=== PATIENT | male | born 1945 | race Hispanic/Latino ===

== ENCOUNTER 2019-01-04 16:42 | Observation (INO) | payer MEDICARE ==
[2019-01-04] MEDS ORDERED: NACL 0.9% 500 ML 500 ML ONE (17:02)
[2019-01-04] MEDS ORDERED: CARDIZEM ONE (17:02)
[2019-01-04] MEDS ORDERED: CARDIZEM IV ONE ×2 (17:10)
[2019-01-04] MEDS ORDERED: CARDIZEM PO ONE (17:10)
[2019-01-04] MEDS ORDERED: NACL 0.9% 500 ML 500 ML IV ONE ×2 (17:10→18:27)
--- NOTE | 2019-01-04 17:12 | Emergency Department Report ---
ED General Adult HPI - General Chief complaint: Chest Pain Stated complaint: CHEST PAIN/SOB Time Seen by Provider: 01/04/19 16:53 Source: patient, RN notes reviewed Mode of arrival: Ambulatory Limitations: No Limitations - History of Present Illness Initial comments: Orthotic Finish Grinding Technician: Dr. Marquis Primary care doctor: [facility] Past medical history: SVT, hypertension, question BPH, on daily aspirin This is a pleasant 73-year-old gentleman known to this provider previously. Patient presents to the ER today with complaint of painless shortness of breath. He endorses palpitations. He denies new or different medications, with the exception of one new medicine, which he cannot recall the name of. The patient denies physical pain at this time. He denies DVT, pulmonary embolism risk factors. He denies ingestion of stimulants. He denies urinary symptoms. He denies hematemesis, bright red blood per rectum. He presents to the ER today in A. fib with RVR which is reportedly new for him. Initial rate 159-164 bpm. Patient not endorsing chest pain. He is given diltiazem, 10 mg, 15 mg, 50 mg, 10 mg, and 30 mg orally. This successfully slow the patient down to a rate in the 80s/90s. He is currently still in A. fib which is reportedly new for him. The patient does not have a past history of diabetes, congestive heart failure, stroke or TIA. He is currently on chronic aspirin therapy. The patient prefers to not receive systemic anticoagulation at this time, as he is concerned about side effects. -: Sudden Improves with: medication Worsens with: none - Related Data Home Medications Medication Instructions Recorded Confirmed Last Taken Aspirin [Aspirin BABY CHEW TAB] 81 mg PO QDAY 01/04/19 01/04/19 1 Day Ago ~01/03/19 Gemfibrozil [Lopid] 600 mg PO BID 01/04/19 01/04/19 1 Day Ago ~01/03/19 Leflunomide [Arava] 20 mg PO QDAY 01/04/19 01/04/19 1 Day Ago ~01/03/19 Lisinopril [Zestril] 20 mg PO QDAY 01/04/19 01/04/19 2 Days Ago ~01/02/19 Metoprolol [Lopressor TAB] 25 mg PO BID 01/04/19 01/04/19 1 Day Ago ~01/03/19 Pravastatin [Pravachol] 40 mg PO QHS 01/04/19 01/04/19 1 Day Ago ~01/03/19 Tamsulosin [Flomax] 0.4 mg PO QDAY 01/04/19 01/04/19 1 Day Ago ~01/03/19 amLODIPine [Norvasc] 5 mg PO DAILY 01/04/19 01/04/19 1 Day Ago ~01/03/19 Allergies Allergy/AdvReac Type Severity Reaction Status Date / Time No Known Allergies Allergy Unverified 01/04/19 16:50 ED Review of Systems ROS: Stated complaint: CHEST PAIN/SOB Other details as noted in HPI Constitutional: denies: fever Eyes: denies: eye discharge ENT: denies: congestion Respiratory: shortness of breath Cardiovascular: palpitations Gastrointestinal: denies: nausea, vomiting, hematemesis, melena, hematochezia Genitourinary: denies: dysuria Musculoskeletal: arthralgia (chronic) Skin: denies: lesions Neurological: weakness. denies: headache Hematological/Lymphatic: denies: easy bleeding ED Past Medical Hx - Past Medical History Previous Medical History?: Yes Hx Hypertension: Yes Additional medical history: SVT - Surgical History Past Surgical History?: No - Medications Home Medications: Home Medications Medication Instructions Recorded Confirmed Last Taken Type Aspirin [Aspirin BABY CHEW TAB] 81 mg PO QDAY 01/04/19 01/04/19 1 Day Ago History ~01/03/19 Gemfibrozil [Lopid] 600 mg PO BID 01/04/19 01/04/19 1 Day Ago History ~01/03/19 Leflunomide [Arava] 20 mg PO QDAY 01/04/19 01/04/19 1 Day Ago History ~01/03/19 Lisinopril [Zestril] 20 mg PO QDAY 01/04/19 01/04/19 2 Days Ago History ~01/02/19 Metoprolol [Lopressor TAB] 25 mg PO BID 01/04/19 01/04/19 1 Day Ago History ~01/03/19 Pravastatin [Pravachol] 40 mg PO QHS 01/04/19 01/04/19 1 Day Ago History ~01/03/19 Tamsulosin [Flomax] 0.4 mg PO QDAY 01/04/19 01/04/19 1 Day Ago History ~01/03/19 amLODIPine [Norvasc] 5 mg PO DAILY 01/04/19 01/04/19 1 Day Ago History ~01/03/19 ED Physical Exam - General Limitations: No Limitations General appearance: alert, in no apparent distress - Head Head exam: Present: atraumatic, normocephalic - Eye Eye exam: Present: normal appearance, EOMI. Absent: nystagmus - ENT ENT exam: Present: normal exam, normal orophraynx, mucous membranes moist, no rmal external ear exam - Neck Neck exam: Present: normal inspection, full ROM. Absent: tenderness, meningismus - Respiratory Respiratory exam: Present: normal lung sounds bilaterally. Absent: respiratory distress - Cardiovascular Cardiovascular Exam: Present: tachycardia, irregular rhythm, normal heart sounds. Absent: systolic murmur, diastolic murmur, rubs, gallop - GI/Abdominal GI/Abdominal exam: Present: soft. Absent: distended, tenderness, guarding, rebound, rigid, pulsatile mass - Rectal Rectal exam: Present: deferred - Extremities Exam Extremities exam: Present: normal inspection, full ROM, other (2+ pulses noted in the bilateral upper, lower extremities. Compartments soft. No long bony tenderness. The pelvis is stable.). Absent: joint swelling, calf tenderness - Back Exam Back exam: Present: normal inspection, full ROM. Absent: tenderness, CVA tenderness (R), CVA tenderness (L), paraspinal tenderness, vertebral tenderness - Neurological Exam Neurological exam: Present: alert, oriented X3, other (Extraocular movements intact. Tongue midline. No facial droop. Facial sensation intact to light touch in the V1, V2, V3 distribution bilaterally. 5 and 5 strength in 4 extremities.. Sensation is intact to light touch in 4 extremities.). Absent: motor sensory deficit - Psychiatric Psychiatric exam: Present: normal affect, normal mood - Skin Skin exam: Present: warm, dry, intact, normal color. Absent: rash ED Course Vital Signs 01/04/19 01/04/19 01/04/19 17:04 17:06 17:10 Temperature Pulse Rate 126 H 112 H 89 Respiratory 23 19 14 Rate Blood Pressure Blood Pressure [Left] O2 Sat by Pulse 94 Oximetry 01/04/19 01/04/19 01/04/19 17:12 17:16 17:20 Temperature 98.8 F Pulse Rate 97 H 82 Respiratory 16 11 L Rate Blood Pressure Blood Pressure [Left] O2 Sat by Pulse Oximetry 01/04/19 01/04/19 01/04/19 17:30 18:00 18:10 Temperature Pulse Rate 80 87 87 Respiratory 14 15 19 Rate Blood Pressure 104/60 87/46 87/46 Blood Pressure [Left] O2 Sat by Pulse 95 94 95 Oximetry 01/04/19 01/04/19 01/04/19 18:16 18:28 19:13 Temperature Pulse Rate 72 150 H Respiratory 20 19 Rate Blood Pressure 80/56 Blood Pressure 88/58 113/68 [Left] O2 Sat by Pulse 95 95 Oximetry 01/04/19 01/04/19 01/04/19 19:26 19:30 20:20 Temperature Pulse Rate 149 H 71 61 Respiratory 17 16 15 Rate Blood Pressure 113/68 120/60 118/63 Blood Pressure [Left] O2 Sat by Pulse 94 95 96 Oximetry - Reevaluation(s) Reevaluation #1: 01/04/19 18:51 Differential diagnosis, including but not limited to: Electrolyte derangement, t hyroid derangement, pneumonia, urinary tract infection, A. fib with RVR Assessment and plan: Old gentleman, no pulmonary embolism or DVT risk factors, low risk by well's criteria, with no additional symptoms with the exception of tachycardia, palpitations and shortness of breath. His tachycardia is improved with intravenous diltiazem, administered by myself. Patient still in A. fib, but not having symptoms at this time. Contacted covering cardiology, Dr. Irma Viveros, who agrees with admission. Indicates her group can follow-up in consultation. Extensive discussion had with the patient regarding systemic anticoagulation versus aspirin therapy. Given his past medical history, the patient has a chads 2 vasc score of 1, and the patient was informed about his annual stroke risk. Through shared decision making, patient and I agreed to continue aspirin therapy, and for the time adi pham, forego systemic anticoagulation. Hospital physician is paged to arrange admission. Reevaluation #2: 01/04/19 18:53 Clinically do not suspect pneumonia or urinary tract infection at this time. Reevaluation #3: 01/04/19 19:50 Dr Varghese to admit TSH within normal limits. X-ray of the chest unremarkable. - EJ/Peripheral Line Arm R Time Out Performed: Yes Indications: other Skin Cleansed in Sterile Fashion: Yes Size: 20 Dressing Placed: Tegaderm Patient Tolerated Procedure: well ED Medical Decision Making - Lab Data Result diagrams: 01/04/19 18:00 01/04/19 18:00 Vital Signs 01/04/19 01/04/19 01/04/19 17:04 17:06 17:10 Temperature Pulse Rate 126 H 112 H 89 Respiratory 23 19 14 Rate Blood Pressure Blood Pressure [Left] O2 Sat by Pulse 94 Oximetry 01/04/19 01/04/19 01/04/19 17:12 17:16 17:20 Temperature 98.8 F Pulse Rate 97 H 82 Respiratory 16 11 L Rate Blood Pressure Blood Pressure [Left] O2 Sat by Pulse Oximetry 01/04/19 01/04/19 01/04/19 17:30 18:00 18:28 Temperature Pulse Rate 80 87 Respiratory 14 15 Rate Blood Pressure 104/60 87/46 Blood Pressure 88/58 [Left] O2 Sat by Pulse 95 94 Oximetry Lab Results 01/04/19 01/04/19 01/04/19 Range/Units 18:00 18:00 18:00 WBC 7.7 (4.5-11.0) K/mm3 RBC 4.30 (3.65-5.03) M/mm3 Hgb 13.3 (11.8-15.2) gm/dl Hct 38.5 (35.5-45.6) % MCV 90 (84-94) fl MCH 31 (28-32) pg MCHC 35 H (32-34) % RDW 14.4 (13.2-15.2) % Plt Count 192 (140-440) K/mm3 PT 13.9 (12.2-14.9) Sec. INR 1.10 (0.87-1.13) Sodium 141 (137-145) mmol/L Potassium 3.9 (3.6-5.0) mmol/L Chloride 106.5 (98-107) mmol/L Carbon Dioxide 23 (22-30) mmol/L Anion Gap 15 mmol/L BUN 17 (9-20) mg/dL Creatinine 0.9 (0.8-1.5) mg/dL Estimated GFR > 60 ml/min BUN/Creatinine Ratio 19 % Glucose 108 H (75-100) mg/dL Calcium 9.4 (8.4-10.2) mg/dL Magnesium (1.7-2.3) mg/dL Total Creatine Kinase (55-170) units/L 01/04/19 Range/Units 18:00 WBC (4.5-11.0) K/mm3 RBC (3.65-5.03) M/mm3 Hgb (11.8-15.2) gm/dl Hct (35.5-45.6) % MCV (84-94) fl MCH (28-32) pg MCHC (32-34) % RDW (13.2-15.2) % Plt Count (140-440) K/mm3 PT (12.2-14.9) Sec. INR (0.87-1.13) Sodium (137-145) mmol/L Potassium (3.6-5.0) mmol/L Chloride (98-107) mmol/L Carbon Dioxide (22-30) mmol/L Anion Gap mmol/L BUN (9-20) mg/dL Creatinine (0.8-1.5) mg/dL Estimated GFR ml/min BUN/Creatinine Ratio % Glucose (75-100) mg/dL Calcium (8.4-10.2) mg/dL Magnesium 1.90 (1.7-2.3) mg/dL Total Creatine Kinase 67 (55-170) units/L - EKG Data -: EKG Interpreted by Nd Rate: tachycardia - EKG Data When compared to previous EKG there are: previous EKG unavailable 01/04/19 18:50 EKG #1 shows A. fib, RVR, was an artifact, T-wave inversions, left ventricular hypertrophy, no endorsement of chest pain, not consistent with ST elevation myocardial infarction. Rate is 159 bpm. [place] interval within normal limits, QTC 463 ms. EKG #2 shows A. fib, variable rate, 90 bpm, normal axis, QTC prolonged, persistent T-wave inversions, no endorsement of chest pain, this EKG is abnormal, the EKG is not consistent with ST elevation myocardial infarction. There is no prior EKG available for comparison. - Radiology Data Radiology results: pending Critical Care Time: Yes Critical care time in (mins) excluding proc time.: 35 Critical care attestation.: If time is entered above; I have spent that time in minutes in the direct care of this critically ill patient, excluding procedure time. ED Disposition Clinical Impression: Atrial fibrillation with RVR Disposition: OP ADMIT IP TO THIS HOSP Is pt being admited?: Yes Does the pt Need Aspirin: Yes Condition: Stable
[2019-01-04 18:08] LABS: Hematocrit 38.5 % (35.5-45.6); Hemoglobin 13.3 gm/dl (11.8-15.2); Mean Corpuscular HGB Conc 35 % (32-34); Mean Corpuscular Volume 90 fl (84-94); Platelet Count 192 K/mm3 (140-440); Red Cell Distribution Width 14.4 % (13.2-15.2)
[2019-01-04 18:19] LABS: INR 1.1 (0.87-1.13)
[2019-01-04 18:26] LABS: BUN/Creatinine Ratio 19; Blood Urea Nitrogen 17 mg/dL (9-20); Calcium 9.4 mg/dL (8.4-10.2); Hemolysis Index 5
[2019-01-04] MEDS ORDERED: BABY ASPIRIN PO ONE (18:53)
[2019-01-04 19:11] LABS: Bilirubin,Urine NEG (Negative); Blood,Urine SM (Negative); Color,Urine Yellow (Yellow); Protein,Urine <15 mg/dL mg/dL (Negative); Urobilinogen,Urine < 2.0 mg/dL (<2.0)
--- NOTE | 2019-01-04 19:26 | XRay Report ---
CHEST 1 VIEW INDICATION: sob tachycardia. COMPARISON: None. FINDINGS: Support devices: None. Heart: Within normal limits. Lungs/Pleura: No acute air space or interstitial disease. Additional findings: None. IMPRESSION: No acute abnormality. Signer Name: James Michel MD Signed: 01/04/2019 7:22 PM Workstation Name: [id number]
[2019-01-04] MEDS ORDERED: SODIUM CHLORIDE FLUSH SYRINGE 10 ML IV PRN (20:15)
[2019-01-04] MEDS ORDERED: ZOFRAN IV PRN (20:15)
[2019-01-04] MEDS ORDERED: MILK OF MAGNESIA PO PRN (20:15)
[2019-01-04] MEDS ORDERED: TYLENOL PO PRN (20:15)
--- NOTE | 2019-01-04 20:19 | History and Physical Report ---
History of Present Illness Date of examination: 01/04/19 Date of admission: 01/04/2019 Chief complaint: Palpitation History of present illness: Pt is a 73 male with PMHx of hypertension who presents to the ER today with complaints of palpitation. Patient's family in room states that the patient was admitted in a nearby hospital 3 weeks ago with palpitation and diagnosed with Afib, he was started on aspirin PO daily and metoprolol 25mg BID. Pt presents to the ER today with the same problem, his heart rate was between 159-164 bpm at presentation, he was started on PO cardizem with improvement of his heart rate. Patient denies any chest pain, denies headache, denies dizziness denies recent illness, denies any cough, denies shortness of breath. Cardiology was consulted and patient is admitted for further evaluation of his presenting symptoms. Past History Past Medical History: hypertension Past Surgical History: No surgical history Social history: no significant social history, lives with family Medications and Allergies Allergies Allergy/AdvReac Type Severity Reaction Status Date / Time No Known Allergies Allergy Unverified 01/04/19 16:50 Home Medications Medication Instructions Recorded Confirmed Last Taken Type Aspirin [Aspirin BABY CHEW TAB] 81 mg PO QDAY 01/04/19 01/04/19 1 Day Ago History ~01/03/19 Gemfibrozil [Lopid] 600 mg PO BID 01/04/19 01/04/19 1 Day Ago History ~01/03/19 Leflunomide [Arava] 20 mg PO QDAY 01/04/19 01/04/19 1 Day Ago History ~01/03/19 Lisinopril [Zestril] 20 mg PO QDAY 01/04/19 01/04/19 2 Days Ago History ~01/02/19 Metoprolol [Lopressor TAB] 25 mg PO BID 01/04/19 01/04/19 1 Day Ago History ~01/03/19 Pravastatin [Pravachol] 40 mg PO QHS 01/04/19 01/04/19 1 Day Ago History ~01/03/19 Tamsulosin [Flomax] 0.4 mg PO QDAY 01/04/19 01/04/19 1 Day Ago History ~01/03/19 amLODIPine [Norvasc] 5 mg PO DAILY 07/08/19 07/08/19 1 Day Ago History ~01/03/19 Active Meds: Active Medications Acetaminophen (Tylenol) 650 mg PO Q4H PRN PRN Reason: Pain MILD(1-3)/Fever >100.5/[place] Magnesium Hydroxide (Milk Of Magnesia) 30 ml PO Q4H PRN PRN Reason: Constipation Ondansetron HCl (Zofran) 4 mg IV Q8H PRN PRN Reason: Nausea And Vomiting Sodium Chloride (Sodium Chloride Flush Syringe 10 Ml) 10 ml IV BID LINDA Sodium Chloride (Sodium Chloride Flush Syringe 10 Ml) 10 ml IV PRN PRN PRN Reason: LINE FLUSH Review of Systems Cardiovascular: palpitations, rapid/irregular heart beat Exam - Constitutional Vitals: Temp Pulse Resp BP Pulse Ox 98.8 F 150 H 19 113/68 95 01/04/19 17:12 01/04/19 19:13 01/04/19 19:13 01/04/19 19:13 01/04/19 19:13 General appearance: Present: no acute distress - EENT Eyes: Present: EOM intact ENT: hearing intact - Neck Neck: Present: normal ROM - Respiratory Respiratory effort: normal Respiratory: bilateral: CTA - Cardiovascular Rhythm: irregularly irregular Heart Sounds: Present: S1 & S2 - Extremities Extremities: no ischemia, No edema Peripheral Pulses: within normal limits - Abdominal General gastrointestinal: Present: non-tender, non-distended Male genitourinary: Present: deferred - Rectal Rectal Exam: deferred - Integumentary Integumentary: Present: warm, dry - Musculoskeletal Musculoskeletal: strength equal bilaterally - Psychiatric Psychiatric: cooperative - Neurologic Neurologic: moves all extremities Results - Labs CBC & Chem 7: 01/04/19 18:00 01/04/19 18:00 Labs: Laboratory Last Values WBC 7.7 K/mm3 (4.5-11.0) 01/04/19 18:00 RBC 4.30 M/mm3 (3.65-5.03) 01/04/19 18:00 Hgb 13.3 gm/dl (11.8-15.2) 01/04/19 18:00 Hct 38.5 % (35.5-45.6) 01/04/19 18:00 MCV 90 fl (84-94) 01/04/19 18:00 MCH 31 pg (28-32) 01/04/19 18:00 MCHC 35 % (32-34) H 01/04/19 18:00 RDW 14.4 % (13.2-15.2) 01/04/19 18:00 Plt Count 192 K/mm3 (140-440) 01/04/19 18:00 PT 13.9 Sec. (12.2-14.9) 01/04/19 18:00 INR 1.10 (0.87-1.13) 01/04/19 18:00 Sodium 141 mmol/L (137-145) 01/04/19 18:00 Potassium 3.9 mmol/L (3.6-5.0) 01/04/19 18:00 Chloride 106.5 mmol/L (98-107) 01/04/19 18:00 Carbon Dioxide 23 mmol/L (22-30) 01/04/19 18:00 15 mmol/L 01/04/19 18:00 BUN 17 mg/dL (9-20) 01/04/19 18:00 0.9 mg/dL (0.8-1.5) 01/04/19 18:00 Estimated GFR > 60 ml/min 01/04/19 18:00 19 % 01/04/19 18:00 Glucose 108 mg/dL (75-100) H 01/04/19 18:00 Calcium 9.4 mg/dL (8.4-10.2) 01/04/19 18:00 Magnesium 1.90 mg/dL (1.7-2.3) 01/04/19 18:00 67 units/L (55-170) 01/04/19 18:00 TSH 1.910 mlU/mL (0.270-4.200) 01/04/19 18:00 Yellow (Yellow) 01/04/19 18:39 Clear (Clear) 01/04/19 18:39 5.0 (5.0-7.0) 01/04/19 18:39 Ur Specific [place] 1.013 (1.003-1.030) 01/04/19 18:39 <15 mg/dl mg/dL (Negative) 01/04/19 18:39 Neg mg/dL (Negative) 01/04/19 18:39 Neg mg/dL (Negative) 01/04/19 18:39 Sm (Negative) 01/04/19 18:39 Neg (Negative) 01/04/19 18:39 Neg (Negative) 01/04/19 18:39 < 2.0 mg/dL (<2.0) 01/04/19 18:39 Ur Leukocyte Esterase Neg (Negative) 01/04/19 18:39 1.0 /HPF (0.0-6.0) 01/04/19 18:39 3.0 /HPF (0.0-6.0) 01/04/19 18:39 Assessment and Plan Assessment and plan: 1. A. fib with RVR 2. Hypertension Plan: Patient is admitted to med telemetry for A. fib with RVR,, Cardizem PRN for elevated heart rate Hold metoprolol for heart rate less than 65 Continue home meds Awaiting cardiology for evaluation today Continue aspirin Plan of care discussed with patient's family, voiced understanding Advance Directives: Yes VTE prophylaxis?: Chemical Plan of care discussed with patient/family: Yes
[2019-01-04] MEDS: SODIUM CHLORIDE FLUSH SYRINGE 10 ML IV SCH (22:53)
[2019-01-05] MEDS ORDERED: LEFLUNOMIDE 20 MG PO SCH (10:00)
--- NOTE | 2019-01-05 12:36 | Consultation ---
History of Present Illness Consult date: 01/05/19 Requesting physician: PIPO NEWBERRY Consult reason: atrial fibrillation History of present illness: The pt is a 73 YO male with a past medical history of nonobstructive CAD, transient atrial flutter, HTN, HLP, LI (wears CPAP about 3 hours every night). He is followed in our office by Dr. Marshall. He presented with c/o palpitations and SOB yesterday evening. Following arrival to ED, pt as noted to be in AFib with RVR and was given cardizem and HR improved. Overnight, pt converted to NSR and he remains in SR on evaluation. Pt denies any current complaints. Pt reports one additional episode or arrhythmia - he presented with c/o palpitations to [facility] ED on 12/12/2018 and was found to be in AFlutter initially and then converted to NSR and was discharged home on PO lopressor 25mg BID. LHC 10/2009 showed mid LAD focal 50%, normal LV function. Echo done 10/2009 showed EF 55%, impaired relaxation, mild MR. Past History Past Medical History: CAD, hypertension, hyperlipidemia Past Surgical History: No surgical history Social history: no significant social history, lives with family Medications and Allergies Allergies Allergy/AdvReac Type Severity Reaction Status Date / Time No Known Allergies Allergy Unverified 01/04/19 16:50 Home Medications Medication Instructions Recorded Confirmed Last Taken Type Aspirin [Aspirin BABY CHEW TAB] 81 mg PO QDAY 01/04/19 01/04/19 1 Day Ago History ~01/03/19 Gemfibrozil [Lopid] 600 mg PO BID 01/04/19 01/04/19 1 Day Ago History ~01/03/19 Leflunomide [Arava] 20 mg PO QDAY 01/04/19 01/04/19 1 Day Ago History ~01/03/19 Lisinopril [Zestril] 20 mg PO QDAY 01/04/19 01/04/19 2 Days Ago History ~01/02/19 Metoprolol [Lopressor TAB] 25 mg PO BID 01/04/19 01/04/19 1 Day Ago History ~01/03/19 Pravastatin [Pravachol] 40 mg PO QHS 01/04/19 01/04/19 1 Day Ago History ~01/03/19 Tamsulosin [Flomax] 0.4 mg PO QDAY 01/04/19 01/04/19 1 Day Ago History ~01/03/19 amLODIPine [Norvasc] 5 mg PO DAILY 01/04/19 01/04/19 1 Day Ago History ~01/03/19 Active Meds: Active Medications Acetaminophen (Tylenol) 650 mg PO Q4H PRN PRN Reason: Pain MILD(1-3)/Fever >100.5/[place] Amlodipine Besylate (Norvasc) 5 mg PO DAILY [facility] Aspirin (Baby Aspirin) 81 mg PO QDAY [facility] Gemfibrozil (Lopid) 600 mg PO BID [facility] Lisinopril (Zestril) 20 mg PO QDAY [facility] Magnesium Hydroxide (Milk Of Magnesia) 30 ml PO Q4H PRN PRN Reason: Constipation Metoprolol Tartrate (Lopressor) 25 mg PO BID [facility] Miscellaneous Medication (Leflunomide [Arava]) 20 mg PO QDAY [facility] Ondansetron HCl (Zofran) 4 mg IV Q8H PRN PRN Reason: Nausea And Vomiting Pravastatin Sodium (Pravachol) 40 mg PO QHS [facility] Sodium Chloride (Sodium Chloride Flush Syringe 10 Ml) 10 ml IV BID [facility] Last Admin: 01/04/19 22:53 Dose: Not Given Documented by: Sodium Chloride (Sodium Chloride Flush Syringe 10 Ml) 10 ml IV PRN PRN PRN Reason: LINE FLUSH Tamsulosin HCl (Flomax) 0.4 mg PO QDAY [facility] Review of Systems Constitutional: no weight loss, no weight gain, no fever, no chills, no sweats Ears, nose, mouth and throat: no ear pain, no nose pain, no sinus pressure, no sinus pain Cardiovascular: palpitations, rapid/irregular heart beat, shortness of breath, high blood pressure, no chest pain, no orthopnea, no edema, no syncope, no lightheadedness, no leg edema Respiratory: shortness of breath, no cough, no congestion, no wheezing, no pain on inspiration Gastrointestinal: no abdominal pain, no nausea, no vomiting, no diarrhea, no constipation, no change in bowel habits Genitourinary Male: no dysuria, no hematuria, no flank pain, no discharge, no urinary frequency, no urinary hesitancy Musculoskeletal: no neck stiffness, no neck pain, no shooting arm pain, no arm numbness/tingling, no low back pain, no shooting leg pain Integumentary: no rash, no pruritis, no redness, no sores, no wounds Neurological: no head injury, no paralysis, no weakness, no parathesias, no numbness, no tingling, no seizures, no syncope Psychiatric: no anxiety Endocrine: no cold intolerance, no heat intolerance Hematologic/Lymphatic: no easy bruising, no easy bleeding Allergic/Immunologic: no urticaria, no wheezing Physical Examination Vital Signs Pulse Resp 126 H 23 01/04/19 17:04 01/04/19 17:04 General appearance: no acute distress HEENT: Positive: PERRL, Normocephaly, Mucus Membranes Moist Neck: Positive: neck supple, trachea midline Cardiac: Positive: Reg Rate and Rhythm, S1/S2 Lungs: Positive: Decreased Breath Sounds Neuro: Positive: Grossly Intact Abdomen: Positive: Soft. Negative: Tender Skin: Negative: Rash Musculoskeletal: No Pain Extremities: Absent: edema Results 01/04/19 18:00 01/04/19 18:00 Coagulation 01/04/19 Range/Units 18:00 PT 13.9 (12.2-14.9) Sec. INR 1.10 (0.87-1.13) CBC 01/04/19 Range/Units 18:00 WBC 7.7 (4.5-11.0) K/mm3 RBC 4.30 (3.65-5.03) M/mm3 Hgb 13.3 (11.8-15.2) gm/dl Hct 38.5 (35.5-45.6) % Plt Count 192 (140-440) K/mm3 Comprehensive Metabolic Panel 01/04/19 Range/Units 18:00 Sodium 141 (137-145) mmol/L Potassium 3.9 (3.6-5.0) mmol/L Chloride 106.5 (98-107) mmol/L Carbon Dioxide 23 (22-30) mmol/L BUN 17 (9-20) mg/dL Creatinine 0.9 (0.8-1.5) mg/dL Glucose 108 H (75-100) mg/dL Calcium 9.4 (8.4-10.2) mg/dL - Imaging and Cardiology Echo: report reviewed (10/2009 showed EF 55%, impaired relaxation, mild MR. ) Cardiac cath: report reviewed (10/2009 showed mid LAD focal 50%, normal LV function. ) EKG: report reviewed, image reviewed EKG interpretations - Telemetry EKG Rhythm: Sinus Rhythm - EKG Supraventricular dysrhythmia: atrial fibrillation Assessment and Plan Pt with elevated CHADS and thus systemic AC in regards to AFib/AFlutter is indicated. Indications, potential risks and benefits of systemic AC reviewed with pt and his at bedside and they are agreeable. Initiate Eliquis. Cont all other present cardiac management. Obtain echo. Cont observation on t elemetry. Likely d/c home in AM pending no acute events occur overnight. The patient has been seen in conjunction with Dr. Platt who agrees with the assessment and plan of care. - Patient Problems (1) Atrial fibrillation with RVR Current Visit: Yes Status: Acute (2) History of atrial flutter Current Visit: Yes Status: Chronic (3) Nonobstructive atherosclerosis of coronary artery Current Visit: Yes Status: Chronic (4) HTN (hypertension) Current Visit: Yes Status: Chronic (5) Hyperlipidemia Current Visit: Yes Status: Chronic (6) Sleep apnea Current Visit: Yes Status: Chronic
[2019-01-05] MEDS: FLOMAX PO SCH (13:34)
[2019-01-05] MEDS: ZESTRIL PO SCH (13:34)
[2019-01-05] MEDS: LOPRESSOR PO SCH ×2 (13:34→21:54)
[2019-01-05] MEDS: BABY ASPIRIN PO SCH (13:34)
[2019-01-05] MEDS: SODIUM CHLORIDE FLUSH SYRINGE 10 ML IV SCH ×2 (13:35→21:56)
[2019-01-05] MEDS: NORVASC PO SCH (13:35)
[2019-01-05] MEDS: LOPID PO SCH ×2 (13:41→21:55)
--- NOTE | 2019-01-05 19:36 | Progress Note ---
Assessment and Plan - Patient Problems (1) Atrial fibrillation with RVR Current Visit: Yes Status: Acute Plan to address problem: At present patient is rate is controlled and rhythm is controlled on by mouth Cardizem. Not sure if we will obtain any further testing for cardiology. Most likely we'll try Cardizem continue this echocardiogram to rule out structural heart disease. And anticoagulation with elaquis. (2) HTN (hypertension) Current Visit: Yes Status: Chronic Plan to address problem: Chronic control with current exam is particular time. History Interval history: Patient feels good no new concerns. Initially brought in with atrial fibrillation given Cardizem resorted back to normal sinus rhythm. She sees Dr. Lopez for cardiology. Has had a previous episode of atrial fibrillation. Presently patient is chest pain-free no shortness of breath cardiac status is regular. Hospitalist Physical - Constitutional Vitals: Temp Pulse Resp BP Pulse Ox 97.5 F L 62 18 121/52 95 01/05/19 16:56 01/05/19 04:00 01/05/19 16:56 01/05/19 16:56 01/05/19 12:59 General appearance: Present: no acute distress - EENT Eyes: Present: PERRL, EOM intact ENT: hearing intact, clear oral mucosa, dentition normal - Neck Neck: Present: supple, normal ROM - Respiratory Respiratory: bilateral: rhonchi - Extremities Extremities: no ischemia, pulses intact, pulses symmetrical, No edema, normal temperature, normal color, Full ROM Peripheral Pulses: within normal limits - Abdominal General gastrointestinal: soft, non-tender, non-distended, distended, normal bowel sounds, other (obese) - Integumentary Integumentary: Present: clear, warm, dry - Psychiatric Psychiatric: appropriate mood/affect, intact judgment & insight, memory intact - Neurologic Neurologic: moves all extremities Results - Labs CBC & Chem 7: 01/04/19 18:00 01/04/19 18:00 Labs: Laboratory Last Values WBC 7.7 K/mm3 (4.5-11.0) 01/04/19 18:00 RBC 4.30 M/mm3 (3.65-5.03) 01/04/19 18:00 Hgb 13.3 gm/dl (11.8-15.2) 01/04/19 18:00 Hct 38.5 % (35.5-45.6) 01/04/19 18:00 MCV 90 fl (84-94) 01/04/19 18:00 MCH 31 pg (28-32) 01/04/19 18:00 MCHC 35 % (32-34) H 01/04/19 18:00 RDW 14.4 % (13.2-15.2) 01/04/19 18:00 Plt Count 192 K/mm3 (140-440) 01/04/19 18:00 PT 13.9 Sec. (12.2-14.9) 01/04/19 18:00 INR 1.10 (0.87-1.13) 01/04/19 18:00 Sodium 141 mmol/L (137-145) 01/04/19 18:00 Potassium 3.9 mmol/L (3.6-5.0) 01/04/19 18:00 Chloride 106.5 mmol/L (98-107) 01/04/19 18:00 Carbon Dioxide 23 mmol/L (22-30) 01/04/19 18:00 15 mmol/L 01/04/19 18:00 BUN 17 mg/dL (9-20) 01/04/19 18:00 0.9 mg/dL (0.8-1.5) 01/04/19 18:00 Estimated GFR > 60 ml/min 01/04/19 18:00 19 % 01/04/19 18:00 Glucose 108 mg/dL (75-100) H 01/04/19 18:00 Calcium 9.4 mg/dL (8.4-10.2) 01/04/19 18:00 Magnesium 1.90 mg/dL (1.7-2.3) 01/04/19 18:00 67 units/L (55-170) 01/04/19 18:00 TSH 1.910 mlU/mL (0.270-4.200) 01/04/19 18:00 Yellow (Yellow) 01/04/19 18:39 Clear (Clear) 01/04/19 18:39 5.0 (5.0-7.0) 01/04/19 18:39 Ur Specific [place] 1.013 (1.003-1.030) 01/04/19 18:39 <15 mg/dl mg/dL (Negative) 01/04/19 18:39 Neg mg/dL (Negative) 01/04/19 18:39 Neg mg/dL (Negative) 01/04/19 18:39 Sm (Negative) 01/04/19 18:39 Neg (Negative) 01/04/19 18:39 Neg (Negative) 01/04/19 18:39 < 2.0 mg/dL (<2.0) 01/04/19 18:39 Ur Leukocyte Esterase Neg (Negative) 01/04/19 18:39 1.0 /HPF (0.0-6.0) 01/04/19 18:39 3.0 /HPF (0.0-6.0) 01/04/19 18:39 Active Medications - Current Medications Current Medications: Generic Name Dose Route Start Last Admin Trade Name Freq PRN Reason Stop Dose Admin Acetaminophen 650 mg 01/04/19 20:15 Tylenol PO Q4H PRN Pain MILD(1-3)/Fever >100.5/[place] Amlodipine Besylate 5 mg 01/05/19 10:00 01/05/19 13:35 Norvasc PO 5 mg DAILY LINDA Administration Apixaban 5 mg 01/05/19 22:00 Eliquis PO Q12HR [facility] Protocol Aspirin 81 mg 01/05/19 10:00 01/05/19 13:34 Baby Aspirin PO 81 mg QDAY ILNDA Administration Gemfibrozil 600 mg 01/05/19 10:00 01/05/19 13:41 Lopid PO 600 mg BID LINDA Administration Lisinopril 20 mg 01/05/19 10:00 01/05/19 13:34 Zestril PO 20 mg QDAY LINDA Administration Magnesium Hydroxide 30 ml 01/04/19 20:15 Milk Of Magnesia PO Q4H PRN Constipation Metoprolol Tartrate 25 mg 01/05/19 10:00 01/05/19 13:34 Lopressor PO 25 mg BID LINDA Administration Miscellaneous Medication 20 mg 01/05/19 10:00 Leflunomide [Arava] PO QDAY LINDA Ondansetron HCl 4 mg 01/04/19 20:15 Zofran IV Q8H PRN Nausea And Vomiting Pravastatin Sodium 40 mg 01/05/19 22:00 Pravachol PO QHS [facility] Sodium Chloride 10 ml 01/04/19 22:00 01/05/19 13:35 Sodium Chloride Flush Syringe 10 Ml IV 10 ml BID LINDA Administration Sodium Chloride 10 ml 01/04/19 20:15 Sodium Chloride Flush Syringe 10 Ml IV PRN PRN LINE FLUSH Tamsulosin HCl 0.4 mg 01/05/19 10:00 01/05/19 13:34 Flomax PO 0.4 mg QDAY LINDA Administration
[2019-01-05] MEDS: ELIQUIS PO SCH (21:55)
[2019-01-05] MEDS ORDERED: PRAVACHOL PO SCH (22:00)
[2019-01-06 08:51] VITALS: BP 137/74
--- NOTE | 2019-01-06 10:52 | Progress Note ---
Assessment and Plan Echo reviewed - normal EF, no significant abnormalities. Currently stable cardiac status. Pt may discharge home from cardiology standpoint on current cardiac regimen, including Eliquis and lopressor. Recommend pt follow up in our office with Dr. Marshall within 1-2 weeks of hospital discharge ([phone]). Pt and pt's verbalize understanding. The patient has been seen in conjunction with Dr. Platt who agrees with the assessment and plan of care. - Patient Problems (1) Atrial fibrillation with RVR Current Visit: Yes Status: Acute (2) History of atrial flutter Current Visit: Yes Status: Chronic (3) Nonobstructive atherosclerosis of coronary artery Current Visit: Yes Status: Chronic (4) HTN (hypertension) Current Visit: Yes Status: Chronic (5) Hyperlipidemia Current Visit: Yes Status: Chronic (6) Sleep apnea Current Visit: Yes Status: Chronic Subjective Date of service: 01/06/19 Principal diagnosis: AFib Interval history: pt resting comfortably up in chair, no current complaints. tele reviewed - pt re eugenie in NSR with no acute events overnight. at bedside. Objective Last Vital Signs Temp 97.3 F L 01/06/19 08:09 Pulse 62 01/06/19 03:59 Resp 18 01/06/19 08:09 BP 137/74 01/06/19 08:09 Pulse Ox 94 01/06/19 03:59 - Physical Examination General: No Apparent Distress HEENT: Positive: PERRL, Normocephaly, Mucus Membranes Moist Neck: Positive: neck supple, trachea midline Cardiac: Positive: Reg Rate and Rhythm, S1/S2 Lungs: Positive: clear to auscultation Neuro: Positive: Grossly Intact Abdomen: Positive: Soft. Negative: Tender Skin: Negative: Rash Musculoskeletal: No Pain Extremities: Absent: edema - Imaging and Cardiology EKG: report reviewed, image reviewed Echo: report reviewed (10/2009 showed EF 55%, impaired relaxation, mild MR. ) Cardiac cath: report reviewed (10/2009 showed mid LAD focal 50%, normal LV function. ) - Telemetry EKG Rhythm: Sinus Rhythm
--- NOTE | 2019-01-06 11:00 | Discharge Summary ---
Providers - Providers Date of Admission: 01/04/19 19:51 Date of discharge: 01/06/19 Attending physician: ALDA CASTILLO 01/04/19 17:09 Consult to Physician [CONS] Urgent Comment: DR CONI CHAPMAN W/DR MOLINA @[id number] Consulting Provider: ANDREA MOLINA Physician Instructions: Reason For Exam: afib w rvr [facility] Condition: Good Pertinent studies: Echocardiogram normal. Structural heart disease. Disposition: -01 TO HOME OR SELFCARE - Discharge Diagnoses (1) Atrial fibrillation with RVR Status: Acute Comment: She presented with atrial fibrillation rapid ventricular rate. Initially started on beta felice was unsuccessful. Follow- up with Cardizem drip and then by mouth Cardizem. Patient remained in regular rhythm for 2448 hrs. No evidence of A. fib during exam. Follow-up echo was normal. Patient be discharged on Cardizem and eloquis follow with cardiology 1- [address] Marquis. (2) HTN (hypertension) Status: Chronic Core Measure Documentation - Palliative Care Palliative Care/ Comfort Measures: Not Applicable - Core Measures Any of the following diagnoses?: none Exam - Constitutional Vitals: Temp Pulse Resp BP Pulse Ox 97.3 F L 62 18 137/74 94 01/06/19 08:09 01/06/19 03:59 01/06/19 08:09 01/06/19 08:09 01/06/19 03:59 General appearance: Present: no acute distress, well-nourished - EENT Eyes: Present: PERRL ENT: hearing intact, clear oral mucosa - Neck Neck: Present: supple, normal ROM - Respiratory Respiratory effort: normal Respiratory: bilateral: CTA - Cardiovascular Heart Sounds: Present: S1 & S2. Absent: rub, click - Extremities Extremities: pulses symmetrical, No edema Peripheral Pulses: within normal limits - Abdominal General gastrointestinal: Present: soft, non-tender, non-distended, normal bowel sounds Male genitourinary: Present: normal - Integumentary Integumentary: Present: clear, warm, dry - Musculoskeletal Musculoskeletal: gait normal, strength equal bilaterally - Psychiatric Psychiatric: appropriate mood/affect, intact judgment & insight - Neurologic Neurologic: CNII-XII intact, moves all extremities Plan Activity: no restrictions, no driving until cleared by PCP Weight Bearing Status: Full Weight Bearing Diet: low cholesterol, low salt Follow up with: SCOTT LEE MD [Primary Care Provider] - 3-5 Days Prescriptions: Apixaban [Eliquis] 5 mg PO Q12HR #60 tablet Metoprolol [Lopressor TAB] 25 mg PO BID #30 tablet
[2019-01-06] MEDS: FLOMAX PO SCH (11:03)
[2019-01-06] MEDS: LOPID PO SCH (11:03)
[2019-01-06] MEDS: ELIQUIS PO SCH (11:03)
[2019-01-06] MEDS: NORVASC PO SCH (11:03)
[2019-01-06] MEDS: ZESTRIL PO SCH (11:04)
[2019-01-06] MEDS: BABY ASPIRIN PO SCH (11:04)
[2019-01-06] MEDS: LOPRESSOR PO SCH (11:04)
[2019-01-06] MEDS: SODIUM CHLORIDE FLUSH SYRINGE 10 ML IV SCH (11:05)
== END 2019-01-06 13:15 | disposition home or self-care (01) ==
LOC: ED 16:42 → 4A 19:51
PROVIDERS: ADMIT Internal Medicine; ATTEND Internal Medicine
DX: I48.2 Chronic atrial fibrillation (principal); I10 Essential (primary) hypertension; E78.5 Hyperlipidemia, unspecified; I48.92 Unspecified atrial flutter; I25.119 Atherosclerotic heart disease of native coronary artery with unspecified angina pectoris; G47.30 Sleep apnea, unspecified; Z79.899 Other long term (current) drug therapy
CPT/HCPCS: 36415; 71045; 80048; 81001; 82550; 83735; 84443; 85027; 85610; 93005; 93010; 93306; 96374; 99291; A9270; G0378; J7040

== ENCOUNTER 2019-03-26 10:05 | Observation (INO) | payer MEDICARE ==
[2019-03-26] MEDS ORDERED: ASPIRIN 325 MG TAB PO ONE (10:24)
[2019-03-26] MEDS ORDERED: dilTIAZem 25 MG/5 ML INJ IV ONE ×2 (10:50→12:47)
[2019-03-26] MEDS ORDERED: dilTIAZem 25 MG/5 ML INJ ONE (10:52)
--- NOTE | 2019-03-26 11:05 | Emergency Department Report ---
ED Chest Pain HPI - General Chief Complaint: Chest Pain Stated Complaint: HEART FIB/PAIN Time Seen by Provider: 03/26/19 10:41 Source: patient Mode of arrival: Ambulatory Limitations: No Limitations - History of Present Illness Initial Comments: 73-year-old male presents to the emergency department from home with complaint of "a strange feeling in my chest" with some intermittent shortness of breath and the patient says "I knew I was back in A. fib." The patient was just recently diagnosed with atrial fibrillation in December of this year and was admitted for further evaluation. He had converted back to a sinus rhythm by the time of discharge, 2 days later. He was discharged home on Eliquis and Lopressor and sent for outpatient f/u in 1-2 weeks with his cardiac cath technologist, Dr Sidhu. He denies any tobacco or illicit drug use. He denies any fever, back pain, lower extremity swelling. He denies any other past medical history. No recent travel or sick contacts at home. - Related Data Home Medications Medication Instructions Recorded Confirmed Last Taken Gemfibrozil [Lopid] 600 mg PO BID 01/04/19 03/26/19 03/26/19 Leflunomide [Arava] 20 mg PO QDAY 01/04/19 03/26/19 03/26/19 Lisinopril [Zestril TAB] 20 mg PO QDAY 01/04/19 03/26/19 03/25/19 Pravastatin [Pravachol] 40 mg PO QHS 01/04/19 03/26/19 03/25/19 Tamsulosin [Flomax] 0.4 mg PO QDAY 01/04/19 03/26/19 03/26/19 amLODIPine [Norvasc] 5 mg PO DAILY 01/04/19 03/26/19 03/26/19 Finasteride [Proscar] 5 mg PO QDAY 03/26/19 03/26/19 Unknown Previous Rx's Medication Instructions Recorded Last Taken Type Apixaban [Eliquis] 5 mg PO Q12HR #60 tablet 01/06/19 03/26/19 Rx Metoprolol [Lopressor TAB] 25 mg PO BID #30 tablet 01/06/19 03/26/19 Rx Allergies Allergy/AdvReac Type Severity Reaction Status Date / Time No Known Allergies Allergy Unverified 01/04/19 16:50 Heart Score - HEART Score History: Slightly suspicious EKG: Non-specific Age: > 65 Risk factors: 1-2 risk factors Troponin: < normal limit HEART Score: 4 - Critical Actions Critical Actions: 4-6 pts:12-16.6% risk of adverse cardiac event. Should be admitted ED Review of Systems ROS: Stated complaint: HEART FIB/PAIN Other details as noted in HPI Comment: All other systems reviewed and negative Constitutional: denies: chills, fever Respiratory: shortness of breath. denies: cough Cardiovascular: chest pain, palpitations. denies: edema Gastrointestinal: denies: abdominal pain, vomiting Genitourinary: denies: dysuria, discharge Musculoskeletal: denies: back pain, arthralgia Neurological: denies: headache, weakness ED Past Medical Hx - Past Medical History Previous Medical History?: Yes Hx Hypertension: Yes Additional medical history: SVT - Surgical History Past Surgical History?: No - Social History Smoking Status: Never Smoker Substance Use Type: None - Medications Home Medications: Home Medications Medication Instructions Recorded Confirmed Last Taken Type Gemfibrozil [Lopid] 600 mg PO BID 01/04/19 03/26/19 03/26/19 History Leflunomide [Arava] 20 mg PO QDAY 01/04/19 03/26/19 03/26/19 History Lisinopril [Zestril TAB] 20 mg PO QDAY 01/04/19 03/26/19 03/25/19 History Pravastatin [Pravachol] 40 mg PO QHS 01/04/19 03/26/19 03/25/19 History Tamsulosin [Flomax] 0.4 mg PO QDAY 01/04/19 03/26/19 03/26/19 History amLODIPine [Norvasc] 5 mg PO DAILY 01/04/19 03/26/19 03/26/19 History Apixaban [Eliquis] 5 mg PO Q12HR #60 tablet 01/06/19 03/26/19 03/26/19 Rx Metoprolol [Lopressor TAB] 25 mg PO BID #30 tablet 01/06/19 03/26/19 03/26/19 Rx Finasteride [Proscar] 5 mg PO QDAY 03/26/19 03/26/19 Unknown History ED Physical Exam - General Limitations: No Limitations - Other Other exam information: GENERAL: The patient is well-developed well-nourished. HENT: Normocephalic. Atraumatic. Patient has moist mucous membranes. EYES: Extraocular motions are intact. NECK: Supple. Trachea is midline. CHEST/LUNGS: Clear to auscultation. There is no respiratory distress noted. HEART/CARDIOVASCULAR: Irregular rhythm with moderate tachycardia. ABDOMEN: Abdomen is soft, nontender. Patient has normal bowel sounds. There is no abdominal distention. SKIN: Skin is warm and dry. NEURO: The patient is awake, alert, and oriented. The patient is cooperative. The patient has no focal neurologic deficits. Normal speech. MUSCULOSKELETAL: There is no tenderness or deformity. There is no evidence of acute injury. ED Course Vital Signs 03/26/19 03/26/19 03/26/19 10:22 10:56 10:58 Temperature 97.5 F L Pulse Rate 136 H 139 H 98 H Respiratory 20 Rate Blood Pressure 137/80 Blood Pressure 137/93 [Left] O2 Sat by Pulse 95 Oximetry 03/26/19 03/26/19 03/26/19 11:18 13:27 13:53 Temperature 97.9 F Pulse Rate 79 120 H 64 Respiratory 17 19 Rate Blood Pressure 83/68 Blood Pressure 99/68 110/70 [Left] O2 Sat by Pulse 95 Oximetry - Consultations Consultation #1: Earlier in the afternoon, the patient had some rate control but did not convert back to a sinus rhythm. I spoke with [facility] cardiology who recommended increasing the Lopressor to 50 mg twice daily and the patient in follow-up outpatient. However, in the meantime, the patient did return to having a rapid ventricular rate that required another dose of Cardizem. At this point, cardiology recommended to admit the patient for further evaluation to the hospitalist service. 03/26/19 14:20 SHU score - Shu Score Age > 65: (1) Yes Aspirin use within the Past 7 Days: (0) No 3 or more CAD Risk Factors: (0) No 2 or more Angina events in past 24 hrs: (1) Yes Known CAD with more than 50% Stenosis: (0) No Elevated Cardiac Markers: (0) No ST Deviation Greater than 0.5mm: (0) No SHU Score: 2 ED Medical Decision Making - Lab Data Result diagrams: 03/26/19 10:55 03/26/19 10:55 - EKG Data -: EKG Interpreted by Me - EKG Data When compared to previous EKG there are: no significant change Interpretation: unchanged when compared t (01/04/19), other (atrial fibrillation with RVR with rate of 145 bpm. T-wave inversions to the lateral leads) - Radiology Data Radiology results: image reviewed interpreted by me: Chest x-ray does not show any acute process. There are no pleural effusions, obvious pneumonia and there is no pneumothorax. - Medical Decision Making This patient presents with A. fib with RVR. He has one previous history of having A. fib. Patient was given a dose of 15 mg of Cardizem with sufficient rate control but no conversion back to sinus rhythm. His labs thus far have been unremarkable including a negative troponin. The patient is anticoagulated on Eliquis. However the patient did have a return of the RVR with a heart rate going up into the 140s that required a second dose of the Cardizem. Since this occurred, cardiology now recommends admission to the hospital. Patient was accepted for admission by the hospitalist, Dr. Varghese. - Differential Diagnosis dysrhythmia, [place], hypoglycemia, hyperthyroidism Critical Care Time: Yes Critical care time in (mins) excluding proc time.: 31 Critical care attestation.: If time is entered above; I have spent that time in minutes in the direct care of this critically ill patient, excluding procedure time. Critical care time was spent on this patient and doing his initial evaluation, multiple re-evaluations, ordering and interpretation of labs and imaging, disc ussion with the patient and his family, discussion with cardiology, and a discussion with the hospitalist service. Critical Care Time: 31 bpm ED Disposition Clinical Impression: Atrial fibrillation with RVR Chest pain Qualifiers: Chest pain type: unspecified Qualified Code(s): R07.9 - Chest pain, unspecified Disposition: 09 OP ADMIT IP TO THIS HOSP Is pt being admited?: Yes Condition: Fair Instructions: Chest Pain (ED) Referrals: PRIMARY CARE, [Primary Care Provider] - 3-5 Days Time of Disposition: 14:13
--- NOTE | 2019-03-26 11:06 | XRay Report ---
CHEST 1 VIEW INDICATION / CLINICAL INFORMATION: Chest Pain. COMPARISON: 01/04/2019 FINDINGS: SUPPORT DEVICES: None. HEART / MEDIASTINUM: No significant abnormality. LUNGS / PLEURA: No significant pulmonary or pleural abnormality. There is blunting of the costophreni c angles bilaterally characteristic of a small amount of pleural fluid or pleural thickening. No pneu mothorax is seen. ADDITIONAL FINDINGS: No significant additional findings. IMPRESSION: 1. There is a small amount of pleural fluid or pleural thickening bilaterally. No focal infiltrate is seen. Signer Name: Dipak Yeboah MD Signed: 03/26/2019 11:01 AM Workstation Name: [id number]
[2019-03-26 11:15] LABS: Basophils # (Auto) 0.1 K/mm3 (0.0-0.1); Basophils % (Auto) 1.1 % (0.0-1.8); Eosinophils # (Auto) 0.3 K/mm3 (0.0-0.4); Eosinophils % (Auto) 3.9 % (0.0-4.3); Hematocrit 42.3 % (35.5-45.6); Hemoglobin 13.8 gm/dl (11.8-15.2); Lymphocytes % (Auto) 13.7 % (13.4-35.0); Mean Corpuscular HGB Conc 33 % (32-34); Mean Corpuscular Volume 90 fl (84-94); Monocytes # (Auto) 0.6 K/mm3 (0.0-0.8); Monocytes % (Auto) 8.6 % (0.0-7.3); Platelet Count 163 K/mm3 (140-440); Red Blood Count 4.71 M/mm3 (3.65-5.03)
[2019-03-26 11:45] LABS: BUN/Creatinine Ratio 18; Blood Urea Nitrogen 16 mg/dL (9-20); Hemolysis Index 12
[2019-03-26] MEDS ORDERED: SODIUM CHLORIDE 0.9% 1000 ML 1,000 ML IV ONE (12:47)
--- NOTE | 2019-03-26 14:35 | Consultation ---
History of Present Illness Consult date: 03/26/19 Requesting physician: SELENA THOMPSON Consult reason: atrial fibrillation History of present illness: The pt is a 73 YO male with a past medical history of paroxysmal atrial fibrillation, anticoagulated with Eliquis, nonobstructive CAD, HTN, HLP, sleep apnea. He is followed in our office by Dr. Marshall. He presented with c/o palpitations and chest pain for several hours prior to arrival. He describes his chest pain as an epigastric burning which he thought was secondary to indigestion. Following arrival to ED, he was found to be in AFib with RVR and was given IV cardizem bolus and HR improved to AFib with CVR. He was actually pending discharge home to follow up in our office when he developed AFib RVR again in ED and thus the decision has been made to admit pt per hospitalist service for further eval/management. On evaluation, pt is resting comfortably with no current complaints. He is currently in AFib with CVR with intermittent paroxysms of RVR. LHC done 03/03/2019 @ [facility] showed mild nonobstructive CAD (25% mid LAD), EF 60-65%. Echo done 12/2018 showed normal EF, no significant abnormalities. Past History Past Medical History: atrial fib, CAD, hypertension, hyperlipidemia Medications and Allergies Allergies Allergy/AdvReac Type Severity Reaction Status Date / Time No Known Allergies Allergy Unverified 01/04/19 16:50 Home Medications Medication Instructions Recorded Confirmed Last Taken Type Gemfibrozil [Lopid] 600 mg PO BID 01/04/19 03/26/19 03/26/19 History Leflunomide [Arava] 20 mg PO QDAY 01/04/19 03/26/19 03/26/19 History Lisinopril [Zestril TAB] 20 mg PO QDAY 01/04/19 03/26/19 03/25/19 History Pravastatin [Pravachol] 40 mg PO QHS 01/04/19 03/26/19 03/25/19 History Tamsulosin [Flomax] 0.4 mg PO QDAY 01/04/19 03/26/19 03/26/19 History amLODIPine [Norvasc] 5 mg PO DAILY 01/04/19 03/26/19 03/26/19 History Apixaban [Eliquis] 5 mg PO Q12HR #60 tablet 01/06/19 03/26/19 03/26/19 Rx Metoprolol [Lopressor TAB] 25 mg PO BID #30 tablet 01/06/19 03/26/19 03/26/19 Rx Finasteride [Proscar] 5 mg PO QDAY 03/26/19 03/26/19 Unknown History Active Meds: Active Medications Sodium Chloride (Nacl 0.9% 1000 Ml) 1,000 mls @ 250 mls/hr IV ONCE ONE Stop: 03/26/19 16:46 Last Admin: 03/26/19 13:21 Dose: 250 mls/hr Documented by: Review of Systems Constitutional: no weight loss, no weight gain, no fever, no chills, no sweats Ears, nose, mouth and throat: no ear pain, no nose pain, no sinus pressure, no sinus pain Cardiovascular: chest pain, palpitations, rapid/irregular heart beat, no orthopnea, no edema, no syncope, no lightheadedness, no shortness of breath, no dyspnea on exertion, no paroxysmal nocturnal dyspnea, no high blood pressure Respiratory: no cough, no shortness of breath, no dyspnea on exertion, no congestion, no wheezing, no pain on inspiration Gastrointestinal: no abdominal pain, no nausea, no vomiting, no diarrhea, no constipation, no change in bowel habits Genitourinary Male: no dysuria, no hematuria, no flank pain, no discharge, no urinary frequency, no urinary hesitancy Musculoskeletal: no neck stiffness, no neck pain, no shooting arm pain, no arm numbness/tingling, no low back pain, no shooting leg pain Integumentary: no rash, no pruritis, no redness, no sores, no wounds Neurological: no head injury, no paralysis, no weakness, no parathesias, no numbness, no tingling, no seizures, no syncope Psychiatric: no anxiety Endocrine: no cold intolerance, no heat intolerance Hematologic/Lymphatic: no easy bruising, no easy bleeding Allergic/Immunologic: no urticaria, no wheezing Physical Examination Vital Signs Temp Pulse Resp BP Pulse Ox 97.5 F L 136 H 20 137/93 95 03/26/19 10:22 03/26/19 10:03/26/19 10:03/26/19 10:03/26/19 10:22 General appearance: no acute distress HEENT: Positive: PERRL, Normocephaly, Mucus Membranes Moist Neck: Positive: neck supple, trachea midline Cardiac: Positive: irregularly irregular, S1/S2 Lungs: Positive: Decreased Breath Sounds Neuro: Positive: Grossly Intact Abdomen: Negative: Tender Skin: Negative: Rash Musculoskeletal: No Pain Extremities: Absent: edema Results 03/26/19 10:55 03/26/19 10:55 CBC 03/26/19 Range/Units 10:55 WBC 7.4 (4.5-11.0) K/mm3 RBC 4.71 (3.65-5.03) M/mm3 Hgb 13.8 (11.8-15.2) gm/dl Hct 42.3 (35.5-45.6) % Plt Count 163 (140-440) K/mm3 Lymph # 1.0 L (1.2-5.4) K/mm3 [place] # 0.6 (0.0-0.8) K/mm3 Eos # 0.3 (0.0-0.4) K/mm3 Baso # 0.1 (0.0-0.1) K/mm3 Comprehensive Metabolic Panel 03/26/19 Range/Units 10:55 Sodium 147 H (137-145) mmol/L Potassium 4.1 (3.6-5.0) mmol/L Chloride 109.8 H (98-107) mmol/L Carbon Dioxide 22 (22-30) mmol/L BUN 16 (9-20) mg/dL Creatinine 0.9 (0.8-1.5) mg/dL Glucose 143 H (75-100) mg/dL Calcium 9.0 (8.4-10.2) mg/dL - Imaging and Cardiology Echo: report reviewed (12/2018 showed normal EF, no significant abnormalities.) Cardiac cath: report reviewed (03/03/2019 @ [facility] showed mild nonobstructive CAD (25% mid LAD), EF 60-65%. ) EKG: report reviewed, image reviewed EKG interpretations - Telemetry EKG Rhythm: Atrial Fibrillation - EKG Supraventricular dysrhythmia: atrial fibrillation Assessment and Plan Optimize HR - increase home lopressor to 50mg BID and hold home amlodipine to allow for increased lopressor dosage, cont lisinopril, cont Eliquis. Cont to monitor on telemetry. Likely d/c home in AM pending HR is optimized overnight. The patient has been seen in conjunction with Dr. Aaron who agrees with the assessment and plan of care. - Patient Problems (1) Paroxysmal atrial fibrillation with RVR Current Visit: Yes Status: Acute (2) HTN (hypertension) Current Visit: Yes Status: Chronic (3) Hyperlipidemia Current Visit: Yes Status: Chronic (4) Nonobstructive atherosclerosis of coronary artery Current Visit: Yes Status: Chronic (5) Sleep apnea Current Visit: Yes Status: Chronic
[2019-03-26] MEDS ORDERED: ASPIRIN 325 MG TAB ONE (16:46)
[2019-03-26] MEDS: APIXABAN 5 MG TAB PO SCH (21:01)
[2019-03-26] MEDS ORDERED: PRAVASTATIN 40 MG TAB PO SCH (22:00)
[2019-03-26] MEDS ORDERED: METOPROLOL TARTRATE 50 MG TAB PO SCH (22:00)
--- NOTE | 2019-03-27 07:23 | Event Note ---
Date: 03/26/19 See H/p in reports A fib Chest pain
[2019-03-27 08:11] VITALS: BP 147/76
--- NOTE | 2019-03-27 09:06 | History and Physical Report ---
CHIEF COMPLAINT: Palpitations. HISTORY OF PRESENT ILLNESS: A 73-year-old with a history of paroxysmal atrial fibrillation, on Eliquis, coronary artery disease, hypertension, hyperlipidemia, sleep apnea, comes in for palpitations and chest pain several hours prior to arrival. Describes the chest pain as an epigastric burning, which is thought to be secondary to indigestion. The patient was in atrial fibrillation with RVR in the Emergency Room. He was given IV Cardizem bolus, which improved his heart rate. The patient was about to be discharged when he developed atrial fibrillation with RVR again and thus, it was decided to admit the patient to telemetry. PAST MEDICAL HISTORY: Significant for hypertension, hyperlipidemia, BPH, paroxysmal atrial fibrillation, on Eliquis. PAST SURGICAL HISTORY: None. SOCIAL HISTORY: Does not smoke. FAMILY HISTORY: Hypertension. CURRENT MEDICATIONS: On chart. REVIEW OF SYSTEMS: Significant for left-sided chest pain and palpitations. PHYSICAL EXAMINATION: GENERAL: Elderly male, cooperative during examination. VITAL SIGNS: Initial heart rate of 120-136. Later on settled down to 86. Blood pressure 137/80, respiratory rate 17, sats are 92%. HEENT: Unremarkable. Pupils equal and reactive. NECK: Supple, no lymphadenopathy, no thyromegaly. LUNGS: Clear to auscultation and percussion. Good air entry. CARDIOVASCULAR: S1, S2 heard. No gallop, no murmur, no rub. Apical impulse in left fifth intercostal space and midclavicular line. ABDOMEN: Soft and benign. No hepatosplenomegaly. No guarding, no rigidity. Hernial orifices are normal. EXTREMITIES: Good pedal pulses. No pedal edema. CENTRAL NERVOUS SYSTEM: Alert and oriented x 4, nonfocal exam. LABORATORY DATA: EKG: Atrial fibrillation with rapid ventricular rate. Chest x-ray, no acute findings. Small amount of pleural fluid. No focal infiltrates. Labs are significant for normal CBC. Sodium is 147, slightly high. Glucose is 143, BUN and creatinine are normal. Troponin is normal. ASSESSMENT AND PLAN: 1. Atrial fibrillation with rapid ventricular response. The patient initiated on Cardizem boluses. No Cardizem drip was initiated. The patient was also started on metoprolol 50 mg twice a day. 2. Hypertension. Continue metoprolol. 3. Benign prostatic hypertrophy. Continue tamsulosin. 4. Anticoagulation. Continue Eliquis for atrial fibrillation. 5. Hyperlipidemia. Continue pravastatin and gemfibrozil. 6. Deep venous thrombosis prophylaxis. The patient already on Eliquis. Gastrointestinal prophylaxis initiated. In summary, the patient has atrial fibrillation with RVR, hypertension, BPH, hyperlipidemia. JOB# [id number] VSM/NTS MTDD
[2019-03-27] MEDS: APIXABAN 5 MG TAB PO SCH (09:23)
[2019-03-27] MEDS ORDERED: LEFLUNOMIDE 20 MG PO SCH (10:00)
[2019-03-27] MEDS ORDERED: TAMSULOSIN 0.4 MG CAP PO SCH (10:00)
[2019-03-27] MEDS ORDERED: LISINOPRIL 20 MG TAB PO SCH (10:00)
[2019-03-27] MEDS ORDERED: GEMFIBROZIL 600 MG TAB PO SCH (10:00)
[2019-03-27] MEDS ORDERED: ASPIRIN 81 MG TAB CHEW PO SCH (10:00)
[2019-03-27] MEDS ORDERED: METOPROLOL TARTRATE 25 MG TAB PO SCH (10:00)
[2019-03-27] MEDS ORDERED: FINASTERIDE 5 MG TAB PO SCH (10:00)
--- NOTE | 2019-03-27 11:02 | Discharge Summary ---
Providers - Providers Date of Admission: 03/26/19 14:13 Date of discharge: 03/27/19 Attending physician: ALDA CASTILLO 03/26/19 14:14 Consult to Cardiology [CONS] Routine Consulting Provider: ANDREA MOLINA Reason For Exam: A-fib with RVR Primary care physician: KRYSTLE CASTELLANOS MD Hospitalization Condition: Fair Hospital course: Patient 73-year-old with history of A. fib on Eliquis coronary disease hypertension hyperlipidemia is admitted with epigastric chest pain in the ED is found to be in A. fib with rapid ventricular rate. Patient was given IV Cardizem and rate return to less than 85. Also had a left heart cath 03/03/2019 showed ejection fraction of 65%. Currently this morning patient is in regular sinus normal sinus with a rate of 65-70. Patient metoprolol has been increased to 50 mg twice a day. Amlodipine discontinued to allow increase AV bebe blocking and lisinopril continued. Patient also will continue on Eliquis. Disposition: TO HOME OR SELFCARE - Discharge Diagnoses (1) Atrial fibrillation with RVR Status: Acute Comment: She presented with atrial fibrillation rapid ventricular rate. Initially started on beta felice was unsuccessful. Follow- up with Cardizem drip and then by mouth Cardizem. Patient remained in regular rhythm for 2448 hrs. No evidence of A. fib during exam. Follow-up echo was normal. Patient be discharged on Cardizem and eloquis follow with cardiology 1- [address] Marquis. (2) HTN (hypertension) Status: Chronic Comment: Blood pressure currently optimal control with Lopressor and lisinopril. (3) Hyperlipidemia Status: Chronic Comment: cont statin (4) Nonobstructive atherosclerosis of coronary artery Status: Chronic Comment: pt reamins cp free at this time Core Measure Documentation - Palliative Care Palliative Care/ Comfort Measures: Not Applicable - Core Measures Any of the following diagnoses?: none Exam - Constitutional Vitals: Temp Pulse Resp BP Pulse Ox 98.2 F 66 20 147/76 96 03/27/19 07:54 03/27/19 04:19 03/27/19 08:11 03/27/19 07:54 03/27/19 04:19 General appearance: Present: no acute distress, well-nourished - EENT Eyes: Present: PERRL ENT: hearing intact, clear oral mucosa - Neck Neck: Present: supple, normal ROM - Respiratory Respiratory effort: normal Respiratory: bilateral: CTA - Cardiovascular Heart Sounds: Present: S1 & S2. Absent: rub, click - Extremities Extremities: pulses symmetrical, No edema Peripheral Pulses: within normal limits - Abdominal General gastrointestinal: Present: soft, non-tender, non-distended, normal bowel sounds Male genitourinary: Present: normal - Integumentary Integumentary: Present: clear, warm, dry - Musculoskeletal Musculoskeletal: gait normal, strength equal bilaterally - Psychiatric Psychiatric: appropriate mood/affect, intact judgment & insight - Neurologic Neurologic: CNII-XII intact, moves all extremities Plan Activity: no restrictions, up only with assistance Diet: low cholesterol Special Instructions: record daily BP diary Follow up with: PRIMARY CARE, [Referring] - 3-5 Days Prescriptions: Metoprolol [Lopressor TAB] 25 mg PO BID #60 tablet
--- NOTE | 2019-03-27 11:14 | Progress Note ---
Assessment and Plan Patient is doing well today. Anxious to go home. Cardiac status is stable. Discussed with Dr. Ortega. Agree with discharge plans. We will see the patient in 2 weeks, sooner if needed. - Patient Problems (1) Paroxysmal atrial fibrillation with RVR Current Visit: Yes Status: Acute (2) HTN (hypertension) Current Visit: Yes Status: Chronic (3) Hyperlipidemia Current Visit: Yes Status: Chronic (4) Nonobstructive atherosclerosis of coronary artery Current Visit: Yes Status: Chronic (5) Sleep apnea Current Visit: Yes Status: Chronic Subjective Date of service: 03/27/19 Interval history: Patient is feeling well today. No chest pain difficulty in breathing today. No significant cardiac arrhythmias during the night. Discussed with Dr. Ortega patient is very to go home. Objective Vital Signs Temp Pulse Pulse Resp BP BP Pulse Ox 03/27/19 08:11 20 03/27/19 07:54 98.2 F 18 147/76 03/27/19 04:19 98.0 F 66 18 148/72 96 03/27/19 00:13 98.2 F 78 20 168/64 99 03/26/19 21:01 124/65 03/26/19 19:39 98.0 F 58 L 18 124/65 95 03/26/19 19:10 56 L 15 125/67 03/26/19 19:00 84 18 134/63 89 03/26/19 18:50 61 18 134/63 96 03/26/19 18:40 66 16 130/72 95 03/26/19 18:30 57 L 16 130/72 94 03/26/19 18:20 60 14 144/77 03/26/19 18:10 59 L 16 142/72 94 03/26/19 18:00 64 13 144/77 93 03/26/19 17:50 66 13 137/75 94 03/26/19 17:40 59 L 13 134/93 91 03/26/19 17:30 61 15 131/68 93 03/26/19 17:20 59 L 13 127/60 93 03/26/19 17:10 59 L 20 145/74 95 03/26/19 17:00 60 13 135/72 94 03/26/19 16:50 55 L 12 114/72 93 03/26/19 16:40 57 L 16 127/68 93 03/26/19 16:30 60 14 125/62 93 03/26/19 16:20 52 L 14 125/64 93 03/26/19 16:10 53 L 11 L 121/65 94 03/26/19 16:00 57 L 12 119/63 95 03/26/19 15:50 55 L 17 117/55 91 03/26/19 15:40 52 L 15 107/52 92 03/26/19 15:30 53 L 16 110/57 93 03/26/19 15:20 54 L 13 110/58 93 03/26/19 15:10 53 L 15 106/56 93 03/26/19 15:00 56 L 14 104/50 92 03/26/19 14:50 54 L 13 107/56 94 03/26/19 14:46 56 L 58 L 18 03/26/19 14:40 54 L 16 104/54 94 03/26/19 14:30 55 L 9 L 112/64 93 03/26/19 14:20 55 L 15 113/65 95 03/26/19 14:10 58 L 12 120/61 94 03/26/19 14:00 95 H 14 110/70 93 03/26/19 13:53 64 19 110/70 03/26/19 13:50 76 13 110/70 95 03/26/19 13:40 78 14 110/65 94 03/26/19 13:30 87 11 L 108/62 03/26/19 13:27 120 H 83/68 03/26/19 13:20 103 H 17 83/56 95 03/26/19 13:10 125 H 15 114/84 95 03/26/19 13:00 126 H 25 H 104/71 91 03/26/19 12:50 120 H 13 104/71 95 03/26/19 12:40 116 H 24 95/62 95 03/26/19 12:31 106/66 95 03/26/19 12:10 93 H 14 109/63 95 03/26/19 12:00 109 H 21 109/63 92 03/26/19 11:50 99 H 18 103/59 96 03/26/19 11:40 108 H 14 99/68 95 03/26/19 11:30 110 H 11 L 107/63 94 03/26/19 11:20 90 15 99/68 94 03/26/19 11:18 97.9 F 79 17 99/68 95 - Physical Examination HEENT: Positive: PERRL, Normocephaly, Mucus Membranes Moist Neck: Positive: neck supple, trachea midline Cardiac: Positive: Regular Rate Lungs: Positive: clear to auscultation Neuro: Positive: Grossly Intact Abdomen: Positive: Soft. Negative: Tender Skin: Negative: Rash Musculoskeletal: No Pain Extremities: Present: normal. Absent: edema - Labs and Meds CBC 03/26/19 Range/Units 10:55 WBC 7.4 (4.5-11.0) K/mm3 RBC 4.71 (3.65-5.03) M/mm3 Hgb 13.8 (11.8-15.2) gm/dl Hct 42.3 (35.5-45.6) % Plt Count 163 (140-440) K/mm3 Lymph # 1.0 L (1.2-5.4) K/mm3 [place] # 0.6 (0.0-0.8) K/mm3 Eos # 0.3 (0.0-0.4) K/mm3 Baso # 0.1 (0.0-0.1) K/mm3 Comprehensive Metabolic Panel 03/26/19 Range/Units 10:55 Sodium 147 H (137-145) mmol/L Potassium 4.1 (3.6-5.0) mmol/L Chloride 109.8 H (98-107) mmol/L Carbon Dioxide 22 (22-30) mmol/L BUN 16 (9-20) mg/dL Creatinine 0.9 (0.8-1.5) mg/dL Glucose 143 H (75-100) mg/dL Calcium 9.0 (8.4-10.2) mg/dL - Imaging and Cardiology EKG: report reviewed, image reviewed Echo: report reviewed (12/2018 showed normal EF, no significant abnormalities.) Cardiac cath: report reviewed (03/03/2019 @ [facility] showed mild nonobstructive CAD (25% mid LAD), EF 60-65%. )
== END 2019-03-27 12:05 | disposition home or self-care (01) ==
LOC: ED 10:05 → 4A 14:13
PROVIDERS: ADMIT Internal Medicine; ATTEND Internal Medicine
DX: I48.2 Chronic atrial fibrillation (principal); I10 Essential (primary) hypertension; N40.0 Benign prostatic hyperplasia without lower urinary tract symptoms; E78.5 Hyperlipidemia, unspecified; G47.30 Sleep apnea, unspecified
CPT/HCPCS: 36415; 71045; 80048; 84443; 84484; 85025; 93005; 93010; 96374; 96376; 99291; A9270; G0378; J7030